=== PATIENT | female | born 1940 | race African-American/Black ===

== ENCOUNTER 2017-07-08 11:21 | Inpatient (IN) | payer MEDICARE ==
[~2017-07-08] VITALS: Ht 160 cm; Wt 83.9 kg
[2017-07-08] MEDS ORDERED: ATEN-42 PO (11:25)
[2017-07-08 13:30] LABS: BASOPHILS % 0.6 % (0.0-2.0); EOSINOPHILS % 0.2 % (0.0-5.0); HEMATOCRIT. 35.7 % (36.0-48.0); HEMOGLOBIN. 11.4 g/dL (12.0-16.0); LYMPHOCYTES % 19.9 % (20.0-50.0); MEAN CORPUSCULAR HEMOGLOBIN 27.4 pg (28.0-32.0); MEAN CORPUSCULAR VOLUME 85.9 fL (81.0-99.0); MEAN PLATELET VOLUME 8.6 fl (7.4-10.4); MONOCYTES % 6.6 % (2.0-8.0); NEUTROPHILS % 72.7 % (40.0-76.0); PLATELET 257 x1000/uL (130-400); RED BLOOD CELL COUNT 4.16 mill/uL (4.2-5.4); RED CELL DISTRIBUTION WIDTH 17.1 % (11.6-14.6)
[2017-07-08 13:40] LABS: PARTIAL THROMBOPLASTIN TIME 28.5 sec (23.4-31.0)
[2017-07-08 13:47] LABS: CARBON DIOXIDE 17 mEq/L (21-32); CHLORIDE 112 mEq/L (98-107); TROPONIN I < 0.02 ng/mL (0.00-0.04)
[2017-07-08] MEDS ORDERED: SODIUM CHLORIDE 0.9% 1,000 ML IV ONE (15:19)
[2017-07-08] MEDS ORDERED: HYDR25TA PO (16:47)
[2017-07-08] MEDS ORDERED: BACL20TA PO (16:47)
[2017-07-08] MEDS ORDERED: AMLO10TA80 PO (16:47)
[2017-07-08] MEDS ORDERED: ATEN50TA PO (16:47)
[2017-07-08] MEDS ORDERED: ASPIRIN 325MG EC TABLET PO ONE (17:00)
[2017-07-08] MEDS ORDERED: CLONIDINE 0.1MG TABLET PO PRN (18:00)
[2017-07-08] MEDS ORDERED: ACETAMINOPHEN 325MG TABLET PO PRN (18:00)
[2017-07-08] MEDS ORDERED: ENOXAPARIN 40MG/0.4ML SYR SUBCUT NR (22:00)
[2017-07-08 22:15] VITALS: BP 146/82
[2017-07-08] MEDS: DEXT 5%/0.45% NACL KCL 20MEQ/L 1,000 ML IV SCH (22:45)
[2017-07-09] VITALS: BP 130/58
[2017-07-09 04:00] VITALS: BP 130/59
[2017-07-09 07:14] LABS: BASOPHILS % 0.6 % (0.0-2.0); HEMATOCRIT. 31.9 % (36.0-48.0); HEMOGLOBIN. 10.7 g/dL (12.0-16.0); LYMPHOCYTES % 28.6 % (20.0-50.0); MEAN CORPUSCULAR VOLUME 83.9 fL (81.0-99.0); MEAN PLATELET VOLUME 8.9 fl (7.4-10.4); MONOCYTES % 8.5 % (2.0-8.0); NEUTROPHILS % 61.3 % (40.0-76.0); PLATELET 230 x1000/uL (130-400); RED BLOOD CELL COUNT 3.81 mill/uL (4.2-5.4); RED CELL DISTRIBUTION WIDTH 16.1 % (11.6-14.6)
[2017-07-09 08:00] VITALS: BP 136/74
[2017-07-09 08:05] LABS: VITAMIN B12 SERUM 174 pg/mL (211-911)
[2017-07-09 08:23] LABS: CARBON DIOXIDE 22 mEq/L (21-32); CHLORIDE 112 mEq/L (98-107); CREATINE KINASE 350 IU/L (26-192)
[2017-07-09 08:30] LABS: PREALBUMIN 25.2 mg/dL (20.0-40.0)
[2017-07-09] MEDS ORDERED: ATENOLOL 25MG TABLET PO SCH ×2 (09:00)
[2017-07-09] MEDS ORDERED: AMLODIPINE 10MG TABLET PO SCH ×2 (09:00)
[2017-07-09] MEDS ORDERED: ATENOLOL 50 MG TABLET PO SCH (09:00)
[2017-07-09] MEDS: DEXT 5%/0.45% NACL KCL 20MEQ/L 1,000 ML IV SCH (09:05)
[2017-07-09 12:00] VITALS: BP 123/57
[2017-07-09 16:00] VITALS: BP 104/48
[2017-07-09 16:21] VITALS: BP 123/57
[2017-07-13 07:13] LABS: 25-HYDROXY VITAMIN D3 8.3 ng/mL (.)
== END 2017-07-09 19:50 | DRG 641 ==
LOC: ER 11:47 → 8WST 15:20 → EDBEDREQTM 15:26 → EDBEDREQSVC 15:26 → EDBEDREQ 15:26 → ENRESERV 19:26 → SUPCPDRO 20:49
PROVIDERS: ADMIT Internal Medicine Critical Care Medicine; ATTEND Internal Medicine Critical Care Medicine
DX: E86.0 Dehydration (principal); N18.3 Chronic kidney disease, stage 3 (moderate); I12.9 Hypertensive chronic kidney disease with stage 1 through stage 4 chronic kidney disease, or unspecified chronic kidney disease; W06.XXXA Fall from bed, initial encounter; E53.8 Deficiency of other specified B group vitamins; H54.0 Blindness, both eyes; M16.0 Bilateral primary osteoarthritis of hip; F17.210 Nicotine dependence, cigarettes, uncomplicated; R62.7 Adult failure to thrive; Y92.009 Unspecified place in unspecified non-institutional (private) residence as the place of occurrence of the external cause; Z79.899 Other long term (current) drug therapy; Y93.89 Activity, other specified; Y99.8 Other external cause status; Z90.710 Acquired absence of both cervix and uterus; Z72.89 Other problems related to lifestyle
CPT/HCPCS: 36415; 70450; 71010; 72170; 72192; 80053; 82306; 82550; 82607; 83880; 84134; 84443; 84484; 85025; 85610; 85730; 93005; 93970; 96372; 97162; 97167; 99285; J1650; J7030

== ENCOUNTER 2024-07-05 15:41 | Emergency (ER) | payer MEDICARE, MEDICAID ==
[~2024-07-05] VITALS: Ht 165.1 cm; Wt 68.0 kg
[~2024-07-05 15:41] MED LIST: AMLO10TA80 PO; ATEN50TA PO; ATOR40TA70 PO; BISA10SU62 RC; CLOP75TA33; DILT360C23 PO; HYDR25TA PO; LOSA100T33; METF-414 MT; TRAZ-251; [UNRECOGNIZED DRUG - CODE]
[2024-07-05 15:46] VITALS: O2SAT 99
[2024-07-05 16:30] LABS: BASOPHILS % 0.9 % (0.0-2.0); EOSINOPHILS % 0.3 % (0.0-5.0); HEMATOCRIT. 34.1 % (36.0-48.0); HEMOGLOBIN. 10.7 g/dL (12.0-16.0); LYMPHOCYTES % 17.5 % (20.0-50.0); MEAN CORPUSCULAR HGB CONC 31.3 g/dL (31.0-37.0); MEAN CORPUSCULAR VOLUME 89.3 fL (81.0-99.0); MEAN PLATELET VOLUME 8.6 fl (7.4-10.4); MONOCYTES % 8.9 % (2.0-8.0); NEUTROPHILS % 72.4 % (40.0-76.0); PLATELET 322 x1000/uL (130-400); RED BLOOD CELL COUNT 3.81 mill/uL (4.2-5.4); RED CELL DISTRIBUTION WIDTH 18.5 % (11.6-14.6)
[2024-07-05 16:35] LABS: POTASSIUM 4.2 mEq/L (3.5-5.1)
[2024-07-05 16:37] LABS: CALCIUM 10.5 mg/dL (8.7-10.4)
[2024-07-05 16:40] VITALS: TEMP 36.83628
[2024-07-05 16:41] LABS: CREATININE 1.9 mg/dL (0.6-1.0)
[2024-07-05] MEDS: MORPHINE SULFATE 4 MG/ML INJ (FOR IV/IM USE) IM STA (17:45)
[2024-07-05] MEDS: SODIUM CHLORIDE 0.9% 1,000 ML IV ONE (18:44)
[2024-07-05] MEDS ORDERED: IBUP-2029 MT (18:58)
[2024-07-05 22:09] VITALS: BP 155/73; PULSE 84; RESP 14; O2SAT 99
[2024-07-15] MEDS ORDERED: CEPH250C2 MT (14:33)
== END 2024-07-05 22:16 | disposition home or self-care (01) ==
LOC: ER 15:41
DX: M54.50 Low back pain, unspecified (principal); E11.9 Type 2 diabetes mellitus without complications; I10 Essential (primary) hypertension; Z86.73 Personal history of transient ischemic attack (TIA), and cerebral infarction without residual deficits; Z79.899 Other long term (current) drug therapy
CPT/HCPCS: 99285; 74176; 96360; 80048; 85025; 36415; 96372; J2270; J7030; C1893